=== PATIENT | male | born 1980 | race Caucasian/White ===

== ENCOUNTER 2016-08-29 16:17 | Emergency (ER) | payer OTHER ==
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
--- NOTE | 2016-08-29 17:33 | XR ---
EXAMINATION TYPE: XR ribs RT w pa chest xray DATE OF EXAM: 08/29/2016 5:18 PM COMPARISON: NONE HISTORY: Rib pain TECHNIQUE: 5 views FINDINGS: There is no pleural effusion or pneumothorax. Lungs are clear of infiltrate. Heart and medi astinum are normal. I see no rib fracture. IMPRESSION: Negative right rib exam.
[2016-08-29] MEDS ORDERED: IBUPROFEN 600 MG STARTER PACK 4 TAB BTL PO STA (17:35)
[2016-08-29 17:51] VITALS: BP 150/70; PULSE 97; RESP 16; TEMP 97.1
== END 2016-08-29 17:50 | disposition home or self-care (01) ==
LOC: EC 16:17
DX: M94.0 Chondrocostal junction syndrome [Tietze] (principal); G89.29 Other chronic pain; M54.9 Dorsalgia, unspecified; Z87.891 Personal history of nicotine dependence; W51.XXXA Accidental striking against or bumped into by another person, initial encounter
CPT/HCPCS: 99284

== ENCOUNTER → 2016-09-04 | Outpatient (CLI) | payer OTHER ==
[2016-09-04 14:54] LABS: Blood Urea Nitrogen 12 mg/dL (9-20); Non-African American GFR(MDRD) >60 (>60 ml/min/1.73 sqM)
--- NOTE | 2016-09-04 16:09 | CT ---
EXAMINATION TYPE: CT chest w con DATE OF EXAM: 09/04/2016 COMPARISON: Chest x-ray from 6 days ago. HISTORY: Abnormal x-ray. CT DLP: 1226.0 mGycm. Automated Exposure Control for Dose Reduction was Utilized. TECHNIQUE: CT scan of the thorax is performed following with IV Contrast, patient injected with 100 mL of Omnipaque 300. FINDINGS: LUNGS: The lungs are grossly clear, there is no concerning parenchymal mass or nodule identified. T here is no pleural effusion or pneumothorax seen. The tracheobronchial tree is patent. MEDIASTINUM: There are no greater than 1 cm hilar or mediastinal lymph nodes. No pericardial effusi on is seen. OTHER: Liver is diffusely low dense consistent with fatty infiltration. 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 Visualized portion of spleen is prominent cannot exclude splenomegaly. Some strai ghtening of spine is seen on sagittal images. Multilevel left lateral spurring is present. IMPRESSION: No worrisome mass or adenopathy is seen.
== END | disposition home or self-care (01) ==
LOC: RADCTMAIN 14:09
PROVIDERS: ATTEND Family Medicine
DX: R93.7 Abnormal findings on diagnostic imaging of other parts of musculoskeletal system (principal)
CPT/HCPCS: 82565; 84520; 71260; 36415; Q9967

== ENCOUNTER 2019-04-06 17:08 | Emergency (ER) | payer OTHER ==
[2019-04-06 17:20] VITALS: BP 157/100; PULSE 101; RESP 22; TEMP 98.2
[2019-04-06] MEDS ORDERED: ACET/COD 300 MG/30 MG STARTER PACK 6 TAB BTL PO STA (17:36)
--- NOTE | 2019-04-06 19:24 | XR ---
PROCEDURE: XR knee complete LT - 3V DATE AND TIME: 04/06/2019 5:49 PM CLINICAL INDICATION: PHH; left knee pain, fall anterior knee pain TECHNIQUE: Department protocol COMPARISON: None FINDINGS: There is no fracture or malalignment. Soft tissue swelling is noted. IMPRESSION: Soft tissue swelling.
--- NOTE | 2019-04-06 19:25 | XR ---
PROCEDURE: XR lumbar spine - 3V DATE AND TIME: 04/06/2019 5:49 PM CLINICAL INDICATION: Pain; fall TECHNIQUE: Department protocol COMPARISON: None FINDINGS: There is no fracture or malalignment. The soft tissues are negative for acute findings. Multilevel degenerative facet changes are noted, moderate degree. Multilevel mild degenerative disc c hanges. IMPRESSION: NO ACUTE PROCESS.
--- NOTE | 2019-04-06 19:33 | ED ---
Lower Extremity Injury HPI - General Chief Complaint: Extremity Injury, Lower Stated Complaint: [facility]- Left knee injury/fall Time Seen by Provider: 04/06/19 17:21 Source: patient Mode of arrival: ambulatory Limitations: no limitations - History of Present Illness Initial Comments: 38-year-old male presenting today for chief complaint of left knee pain. 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 She states she was able to walk and continue to work for another hour however he began to have anterior left knee pain. He states this caused him to limp and he started to the last his weight on his right leg she states she fell that this started to cause low back pain. Patient doesn't loss of bowel bladder control urinary retention IV drug use history of cancer fevers he denies any direct trauma to it chest had neck abdomen. Denies any injuries of the upper extremity, or the right LE. Patient denies ankle or hip pain. She denies numbness tingling loss of sensation, coolness or pallor patient has no other complaints and upon arrival appears well ambulatory no signs of acute distress - Related Data Previous Rx's Medication Instructions Recorded Ibuprofen [Motrin] 600 mg PO Q6HR PRN #20 tab 08/29/16 Allergies Allergy/AdvReac Type Severity Reaction Status Date / Time No Known Allergies Allergy Verified 04/06/19 17:20 Review of Systems ROS Statement: Those systems with pertinent positive or pertinent negative responses have been documented in the HPI. ROS Other: All systems not noted in ROS Statement are negative. Past Medical History Past Medical History: Diabetes Mellitus, Hyperlipidemia, Hypertension, Sleep Apnea/CPAP/BIPAP Additional Past Medical History / Comment(s): diverticulitis History of Any Multi-Drug Resistant Organisms: None Reported Past Surgical History: Tonsillectomy Additional Past Surgical History / Comment(s): hematoma removal from leg Past Psychological History: No Psychological Hx Reported Smoking Status: Former smoker Past Alcohol Use History: Rare Past Drug Use History: None Reported General Exam - General Exam Comments Initial Comments: General: The patient is awake and alert, in no distress, and does not appear acutely ill. Eye: Pupils are equal, round and reactive to light, extra-ocular movements are intact. No nystagmus. There is normal conjunctiva bilaterally. No signs of icterus. Cardiovascular: There is a regular rate and rhythm. No murmur, rub or gallop is appreciated. Respiratory: Lungs are clear to auscultation, respirations are non-labored, breath sounds are equal. No wheezes, stridor, rales, or rhonchi. Musculoskeletal: Inspection anterior soft tissue swelling of the right knee. extensor mechanism intact. Normal ROM of the LE b/l knees and ankles b/l. (-) log roll. Strength 5/5. Sensation intact. DP pulses equal bilaterally 2+. No laxity or posterior knee pain. Neurological: A&O x 3. CN II-XII intact grossly, There are no obvious motor or sensory deficits. Coordination appears grossly intact. Speech is normal. Skin: Skin is warm and dry and no rashes or lesions are noted. Psychiatric: Cooperative, appropriate mood & affect, normal judgment. Limitations: no limitations Course Vital Signs 04/06/19 17:18 Temperature 98.2 F Pulse Rate 101 H Respiratory 22 Rate Blood Pressure 157/100 O2 Sat by Pulse 98 Oximetry Medical Decision Making - Medical Decision Making 38-year-old male presenting for left knee pain no noted laxity. Anterior pain with swelling however extensor mechanism intact and patient is neurovascularly intact. X-ray revealed no fracture patient is able to weight-bear. Patient did have some mild paravertebral lumbar tenderness however no midline tenderness to palpation. At this time I Davonte bandage patient's left knee and discuss Rice instructions. Recommend patient follow up with primary care provider in the pain is persistent to follow-up with orthopedic surgery for further evaluation patient is agreeable to this care plan and discharge at this time. Disposition Clinical Impression: Fall, Left knee pain, Low back pain, Elevated blood pressure reading Disposition: HOME SELF-CARE Condition: Good Instructions (If sedation given, give patient instructions): R.I.C.E. Treatment (ED) Additional Instructions: Please use medication as discussed. Please follow-up with family doctor in the next 2 days, if symptoms are persistent seek orthopedic evaluation as discussed. Please return to emergency room if the symptoms increase or worsen or for any other concerns. Is patient prescribed a controlled substance at d/c from ED?: No Referrals: Kerry Galicia III, MD [Primary Care Provider] - 1-2 days Time of Disposition: 19:33
== END 2019-04-06 20:13 | disposition home or self-care (01) ==
LOC: EC 17:08
DX: M25.562 Pain in left knee (principal); M54.5 Low back pain; I10 Essential (primary) hypertension; M79.89 Other specified soft tissue disorders; G47.30 Sleep apnea, unspecified; Z87.891 Personal history of nicotine dependence; Z99.89 Dependence on other enabling machines and devices; W01.0XXA Fall on same level from slipping, tripping and stumbling without subsequent striking against object, initial encounter; Y92.69 Other specified industrial and construction area as the place of occurrence of the external cause; Y99.0 Civilian activity done for income or pay
CPT/HCPCS: 72100; 99283

== ENCOUNTER → 2019-04-13 | Outpatient (CLI) | payer OTHER ==
--- NOTE | 2019-04-13 14:39 | XR ---
EXAMINATION TYPE: XR knee complete LT DATE OF EXAM: 04/13/2019 COMPARISON: NONE HISTORY: 38-year-old male left knee contusion, pain TECHNIQUE: 3 views FINDINGS: No acute fracture, subluxation, dislocation is seen. Anterior soft tissue swelling without significan t knee joint effusion. Extensor mechanism appears intact. IMPRESSION: Anterior soft tissue swelling without acute osseous abnormality seen.
== END | disposition home or self-care (01) ==
LOC: RADXRMAIN 14:03
PROVIDERS: ATTEND Emergency Medicine
DX: S80.02XD Contusion of left knee, subsequent encounter (principal)

== ENCOUNTER → 2019-04-19 | Outpatient (CLI) | payer OTHER ==
--- NOTE | 2019-04-19 22:06 | MR ---
EXAMINATION TYPE: MR knee LT wo con DATE OF EXAM: 04/19/2019 COMPARISON: Plain film 04/13/2019 HISTORY: Lt knee pain, injury, fell 2 weeks ago TECHNIQUE: Multiplanar, multisequence imaging of the left knee is performed without IV contrast. FINDINGS: MEDIAL MENISCUS: There is some linear increased signal present within the medial meniscus body and po sterior horn without clear communication to the articular surface, root anchor thought to be intact. On sagittal image #23 there is some linear increased signal present extending to the articular surfac e LATERAL MENISCUS: Anterior and posterior horns are intact without tear. CRUCIATE LIGAMENTS: The anterior and posterior cruciate ligaments are intact and unremarkable. COLLATERAL LIGAMENTS: The medial collateral ligament and lateral collateral ligament complex are inta ct and there is some increased signal coursing along the medial collateral ligament possibly indicati ng strain. EXTENSOR MECHANISM: Visualized quadriceps and patellar tendons are intact. EFFUSION: Minimal joint effusion POPLITEAL CYST: No popliteal/de la rosa cyst. TRICOMPARTMENT SPACES: Maintained CARTILAGE: Intact BONE MARROW SIGNAL: There is some subchondral bone marrow edema present along the medial femoral cond yle OTHER: Subcutaneous edema changes are present. IMPRESSION: Bone contusion medial femoral condyle, difficult to exclude a small tear the posterior horn the media l meniscus as described. Soft tissue edema. Small joint effusion.
== END | disposition home or self-care (01) ==
LOC: RADMRIMAIN 20:55
PROVIDERS: ATTEND Emergency Medicine
DX: S80.02XD Contusion of left knee, subsequent encounter (principal)

== ENCOUNTER 2021-01-06 12:01 | Emergency (ER) | payer OTHER ==
[2021-01-06 13:41] LABS: Glucose,Whole Blood 243 mg/dL (75-99)
--- NOTE | 2021-01-06 13:43 | ED ---
General Adult HPI - General Source: patient, RN notes reviewed Mode of arrival: ambulatory Limitations: no limitations <Ian Leggett - Last Filed: 01/06/21 13:42> <Marco Woodson - Last Filed: 01/06/21 15:21> - General Stated complaint: SOB & cough Time Seen by Provider: 01/06/21 13:20 - History of Present Illness Initial comments: This a 40-year-old male presents emergency Department chief complaint of cough congestion times one week. Patient states she's been having increasing shortness of breath, hyperglycemia. Patient is known diabetic. Patient states his blood sugars have been between 2 and 300. Patient's had been properly vaccinated for COVID-19. Patient has no history of asthma or COPD. Patient denies any vomiting diarrhea (Ian Leggett) - Related Data Previous Rx's Medication Instructions Recorded Ibuprofen [Motrin] 600 mg PO Q6HR PRN #20 tab 08/29/16 Allergies Allergy/AdvReac Type Severity Reaction Status Date / Time No Known Allergies Allergy Verified 01/06/21 13:43 Review of Systems ROS Other: All systems not noted in ROS Statement are negative. <Ian Leggett - Last Filed: 01/06/21 13:42> ROS Other: All systems not noted in ROS Statement are negative. <Marco Woodson - Last Filed: 01/06/21 15:21> ROS Statement: Those systems with pertinent positive or pertinent negative responses have been documented in the HPI. Past Medical History Past Medical History: Diabetes Mellitus, Hyperlipidemia, Hypertension, Sleep Apnea/CPAP/BIPAP Additional Past Medical History / Comment(s): diverticulitis History of Any Multi-Drug Resistant Organisms: None Reported Past Surgical History: Tonsillectomy Additional Past Surgical History / Comment(s): hematoma removal from leg Past Psychological History: No Psychological Hx Reported Past Alcohol Use History: Rare Past Drug Use History: None Reported <Ian Leggett - Last Filed: 01/06/21 13:42> General Exam General appearance: alert, in no apparent distress, obese (Morbidly) Head exam: Present: atraumatic, normocephalic, normal inspection Eye exam: Present: normal appearance, PERRL, EOMI. Absent: scleral icterus, conjunctival injection, periorbital swelling ENT exam: Present: normal exam, mucous membranes moist Neck exam: Present: normal inspection Respiratory exam: Present: normal lung sounds bilaterally. Absent: respiratory distress, wheezes, rales, rhonchi, stridor Cardiovascular Exam: Present: regular rate, normal rhythm, normal heart sounds. Absent: systolic murmur, diastolic murmur, rubs, gallop, clicks GI/Abdominal exam: Present: soft, normal bowel sounds. Absent: distended, tenderness, guarding, rebound, rigid Extremities exam: Present: normal inspection, full ROM, normal capillary refill. Absent: tenderness, pedal edema, joint swelling, calf tenderness Neurological exam: Present: alert, oriented X3 Psychiatric exam: Present: normal affect, normal mood Skin exam: Present: warm, dry, intact, normal color. Absent: rash <Marco Woodson - Last Filed: 01/06/21 15:21> Course Vital Signs 01/06/21 13:33 Temperature 99.4 F Pulse Rate 119 H Respiratory 24 Rate Blood Pressure 155/84 O2 Sat by Pulse 92 L Oximetry Medical Decision Making - Lab Data Result diagrams: 01/06/21 14:33 01/06/21 14:30 - Radiology Data Radiology results: report reviewed, image reviewed <Marco Woodson - Last Filed: 01/06/21 15:21> - Medical Decision Making 40-year-old male presented emergency department complaining of shortness of breath and not feeling well for the past several days. Labs, chest x-ray, Covid test ordered. Labs: CBC unremarkable CMP unremarkable. Covid test positive. Patient does meet qualifications for monoclonal antibody infusion and wishes to under go to treatment. Case discussed with Dr. Lion, patient can discharge home after infusion with follow-up primary care. (Marco Woodson) - Lab Data Lab Results 01/06/21 01/06/21 01/06/21 Range/Units 13:39 13:43 14:30 WBC (3.8-10.6) k/uL RBC (4.30-5.90) m/uL Hgb (13.0-17.5) gm/dL Hct (39.0-53.0) % MCV (80.0-100.0) fL MCH (25.0-35.0) pg MCHC (31.0-37.0) g/dL RDW (11.5-15.5) % Plt Count (150-450) k/uL MPV Neutrophils % % Lymphocytes % % Monocytes % % Eosinophils % % Basophils % % Neutrophils # (1.3-7.7) k/uL Lymphocytes # (1.0-4.8) k/uL Monocytes # (0-1.0) k/uL Eosinophils # (0-0.7) k/uL Basophils # (0-0.2) k/uL Sodium 134 L (137-145) mmol/L Potassium 4.2 (3.5-5.1) mmol/L Chloride 99 (98-107) mmol/L Carbon Dioxide 25 (22-30) mmol/L Anion Gap 10 mmol/L BUN 16 (9-20) mg/dL Creatinine 1.18 (0.66-1.25) mg/dL Est GFR (CKD-EPI)AfAm 89 (>60 ml/min/1.73 sqM) Est GFR (CKD-EPI)NonAf 77 (>60 ml/min/1.73 sqM) Glucose 265 H (74-99) mg/dL POC Glucose (mg/dL) 243 H (75-99) mg/dL POC Glu Lathe Scalper Operator ID Fetterly, Maile Plasma Lactic Acid Gene (0.7-2.0) mmol/L Calcium 8.8 (8.4-10.2) mg/dL Total Bilirubin 0.8 (0.2-1.3) mg/dL AST 37 (17-59) U/L ALT 26 (4-49) U/L Alkaline Phosphatase 59 (38-126) U/L Total Protein 7.2 (6.3-8.2) g/dL Albumin 3.7 (3.5-5.0) g/dL Coronavirus (PCR) Detected A (Not Detectd) 01/06/21 01/06/21 Range/Units 14:33 14:33 WBC 8.3 (3.8-10.6) k/uL RBC 4.81 (4.30-5.90) m/uL Hgb 14.5 (13.0-17.5) gm/dL Hct 40.6 (39.0-53.0) % MCV 84.4 (80.0-100.0) fL MCH 30.1 (25.0-35.0) pg MCHC 35.7 (31.0-37.0) g/dL RDW 13.1 (11.5-15.5) % Plt Count 206 (150-450) k/uL MPV 7.7 Neutrophils % 83 % Lymphocytes % 11 % Monocytes % 4 % Eosinophils % 0 % Basophils % 0 % Neutrophils # 6.9 (1.3-7.7) k/uL Lymphocytes # 0.9 L (1.0-4.8) k/uL Monocytes # 0.4 (0-1.0) k/uL Eosinophils # 0.0 (0-0.7) k/uL Basophils # 0.0 (0-0.2) k/uL Sodium (137-145) mmol/L Potassium (3.5-5.1) mmol/L Chloride (98-107) mmol/L Carbon Dioxide (22-30) mmol/L Anion Gap mmol/L BUN (9-20) mg/dL Creatinine (0.66-1.25) mg/dL Est GFR (CKD-EPI)AfAm (>60 ml/min/1.73 sqM) Est GFR (CKD-EPI)NonAf (>60 ml/min/1.73 sqM) Glucose (74-99) mg/dL POC Glucose (mg/dL) (75-99) mg/dL POC Glu Lathe Scalper Operator ID Plasma Lactic Acid Gene 1.4 (0.7-2.0) mmol/L Calcium (8.4-10.2) mg/dL Total Bilirubin (0.2-1.3) mg/dL AST (17-59) U/L ALT (4-49) U/L Alkaline Phosphatase (38-126) U/L Total Protein (6.3-8.2) g/dL Albumin (3.5-5.0) g/dL Coronavirus (PCR) (Not Detectd) - Radiology Data Chest x-ray: Bilateral airspace disease is present. Lungs bilateral low there is no evidence of pneumothorax or pleural effusion cardiac is also is likely sta ble conifer differences in technique. (Marco Woodson) Disposition <Ian Leggett - Last Filed: 01/06/21 13:42> Is patient prescribed a controlled substance at d/c from ED?: No Time of Disposition: 15:21 <Marco Woodson - Last Filed: 01/06/21 15:21> Clinical Impression: Pneumonia due to COVID-19 virus Disposition: HOME SELF-CARE Condition: Stable Instructions (If sedation given, give patient instructions): Coronavirus Disease 2019 (COVID-19) Additional Instructions: Please return to the Emergency Department if symptoms worsen or any other co ncerns. Follow-up with primary care 1-2 days. Get plenty rest increase oral fluids. Take, Motrin for any fevers aches and pains. Referrals: Kerry Galicia III, MD [Primary Care Provider] - 1-2 days
[2021-01-06 14:50] LABS: ALT 26 U/L (4-49); AST 37 U/L (17-59); African American GFR (CKD) 89 (>60 ml/min/1.73 sqM); Albumin 3.7 g/dL (3.5-5.0); Alkaline Phosphatase 59 U/L (38-126); Anion Gap 10 mmol/L; Blood Urea Nitrogen 16 mg/dL (9-20); Calcium 8.8 mg/dL (8.4-10.2); Carbon Dioxide 25 mmol/L (22-30); Chloride 99 mmol/L (98-107); Glucose 265 mg/dL (74-99); Non-African American GFR(CKD) 77 (>60 ml/min/1.73 sqM); Potassium 4.2 mmol/L (3.5-5.1); Sodium 134 mmol/L (137-145); Total Bilirubin 0.8 mg/dL (0.2-1.3); Total Protein 7.2 g/dL (6.3-8.2)
[2021-01-06 15:00] LABS: Basophils % (A) 0 %; Eosinophils % (A) 0 %; HCT 40.6 % (39.0-53.0); HGB 14.5 gm/dL (13.0-17.5); Lymphocytes # (A) 0.9 k/uL (1.0-4.8); Lymphocytes % (A) 11 %; MCH 30.1 pg (25.0-35.0); MCHC 35.7 g/dL (31.0-37.0); MCV 84.4 fL (80.0-100.0); Mean Platelet Volume 7.7; Monocytes # (A) 0.4 k/uL (0-1.0); Monocytes % (A) 4 %; Neutrophils # (A) 6.9 k/uL (1.3-7.7); Neutrophils % (A) 83 %; Platelet Count 206 k/uL (150-450); RBC 4.81 m/uL (4.30-5.90); RDW 13.1 % (11.5-15.5); WBC 8.3 k/uL (3.8-10.6)
--- NOTE | 2021-01-06 15:19 | XR ---
EXAMINATION TYPE: XR chest 2V DATE OF EXAM: 01/06/2021 COMPARISON: Chest x-ray 08/29/2016 HISTORY: Cough, shortness of breath TECHNIQUE: Frontal and lateral views of the chest are obtained. FINDINGS: Bilateral airspace disease is present. Lung volumes are low. There is no evident pneumotho rax or pleural effusion. Cardiac mediastinal silhouette is likely stable accounting for differences i n technique. IMPRESSION: Correlate for pneumonia.
[2021-01-06] MEDS ORDERED: DEXAMETHASONE SOD PHOSPHATE 10 MG/ML 1 ML VIAL IV STA (15:20)
[2021-01-06] MEDS ORDERED: CASIRIVIMAB (REGN10933) (EUA) 600 MG, IMDEVIMAB (REGN10987) (EUA) 600 MG in SODIUM CHLO... IVPB ONE (16:00)
[2021-01-06] MEDS ORDERED: SODIUM CHLORIDE 0.9% 50 ML IVPB ONE (16:00)
[2021-01-06 16:57] VITALS: BP 127/63; PULSE 98; RESP 16; TEMP 100
[2021-01-06] MEDS ORDERED: IBUPROFEN 400 MG TAB PO STA (17:00)
== END 2021-01-06 17:30 | disposition home or self-care (01) ==
LOC: EC 12:01
DX: U07.1 COVID-19 (principal); J12.82 Pneumonia due to coronavirus disease 2019; E11.65 Type 2 diabetes mellitus with hyperglycemia; E78.5 Hyperlipidemia, unspecified; I10 Essential (primary) hypertension
CPT/HCPCS: 99285; 36415; 80053; 82009; 83605; 85025; 87635; 71046; J1100; Q0243; 96375

== ENCOUNTER → 2021-12-08 | Outpatient (CLI) | payer OTHER ==
[2021-12-08 18:19] LABS: ALT 13 U/L (10-49); AST 20 U/L (14-35); African American GFR (CKD) 92.1 (60.0-200.0); Albumin 4.3 g/dL (3.8-4.9); Albumin/Globulin Ratio 1.23 (1.60-3.17); Alkaline Phosphatase 72 U/L (41-126); BUN/Creat Ratio 19.39 Ratio (12.00-20.00); Blood Urea Nitrogen 22.1 mg/dL (9.0-27.0); Calcium 9.9 mg/dL (8.7-10.3); Carbon Dioxide 27.6 mmol/L (20.0-27.5); Chloride 104 mmol/L (96-109); Chol/HDL Ratio 4.74 Ratio; Globulin 3.5 g/dL (1.6-3.3); Glucose 134 mg/dL (70-110); LDL Cholesterol,Calculated 58.2 mg/dL (0.0-131.0); Non-African American GFR(CKD) 79.4 (60.0-200.0); Potassium 5.1 mmol/L (3.5-5.5); Sodium 142 mmol/L (135-145); Total Protein 7.8 g/dL (6.2-8.2)
[2021-12-09] LABS: Microalbumin Creatinine Ratio <30 mg/g Creat (0-30); Urine Creatinine 73.9 mg/dL (39.0-259.0)
== END | disposition home or self-care (01) ==
LOC: LABWHC1 13:28
PROVIDERS: ATTEND Internal Medicine
DX: E11.65 Type 2 diabetes mellitus with hyperglycemia (principal)
CPT/HCPCS: 36415; 80053; 80061; 82043; 82570; 83036

== ENCOUNTER → 2022-07-22 | Outpatient (CLI) | payer OTHER, BC ==
[2022-07-22 16:24] LABS: ALT 17 U/L (10-49); AST 18 U/L (14-35); African American GFR (CKD) 96.1 (60.0-200.0); Albumin 4.3 g/dL (3.8-4.9); Alkaline Phosphatase 89 U/L (41-126); BUN/Creat Ratio 16.91 Ratio (12.00-20.00); Blood Urea Nitrogen 18.6 mg/dL (9.0-27.0); Calcium 9.8 mg/dL (8.7-10.3); Carbon Dioxide 28.4 mmol/L (20.0-27.5); Chloride 101 mmol/L (96-109); Chol/HDL Ratio 5.57 Ratio; Globulin 3.3 g/dL (1.6-3.3); Glucose 152 mg/dL (70-110); LDL Cholesterol,Calculated 122.2 mg/dL (0.0-131.0); Non-African American GFR(CKD) 82.9 (60.0-200.0); Potassium 4.6 mmol/L (3.5-5.5); Sodium 140 mmol/L (135-145); Total Protein 7.6 g/dL (6.2-8.2)
== END | disposition home or self-care (01) ==
LOC: LABWHC1 09:11
PROVIDERS: ATTEND Family Medicine
DX: E11.65 Type 2 diabetes mellitus with hyperglycemia (principal)
CPT/HCPCS: 36415; 80053; 80061; 82043; 82570; 83036

== ENCOUNTER → 2022-11-27 | Outpatient (CLI) | payer BC ==
--- NOTE | 2022-11-27 08:52 | XR ---
EXAMINATION TYPE: XR Hip Complete RT DATE OF EXAM: 11/27/2022 8:08 AM INDICATION: Patient age:Male; 42 years old; Reason for study: BACK PAIN; PHH. COMPARISON: None. TECHNIQUE: The right hip was examined in the frontal and lateral projections . FINDINGS: No evidence of any acute osseous pathology, joint dislocation, or soft tissue swelling. No significant joint space narrowing or spurring. Vascular sclerosis. IMPRESSION: No acute osseous pathology.
--- NOTE | 2022-11-27 08:52 | XR ---
EXAMINATION TYPE: XR lumbar spine 2 or 3V DATE OF EXAM: 11/27/2022 CLINICAL HISTORY: pain TECHNIQUE: Three views of the lumbar spine are submitted. COMPARISON: Lumbar spine radiograph 04/06/2019 FINDINGS: There are 5 lumbar type vertebral bodies identified. The lumbar spine shows satisfactory alignment w ithout evidence of acute fracture or dislocation. Vertebral body heights are within normal limits. Multilevel disc space narrowing with endplate sclerosis and anterior osteophytosis. Multilevel facet arthropathy which is most pronounced at L4-L5 and L5-S1. The overlying soft tissue appears unremarka ble. IMPRESSION: 1. No acute fracture or dislocation is seen in the lumbar spine. 2. [id number] multilevel degenerative disc disease and facet arthropathy. This is most pronoun ana laura at L4-L5 and L5-S1.
[2022-11-27 14:13] LABS: Basophils # (A) 0.03 X 10*3/uL (0.00-0.10); Basophils % (A) 0.3 %; Eosinophils # (A) 0.15 X 10*3/uL (0.04-0.35); Eosinophils % (A) 1.7 %; HCT 46.6 % (39.6-50.0); HGB 15.9 d/dL (13.0-17.0); Lymphocytes # (A) 2.66 X 10*3/uL (0.90-5.00); Lymphocytes % (A) 30.4 %; MCH 29.6 pg (27.0-32.0); MCHC 34.1 d/dL (32.0-37.0); MCV 86.8 FL (80.0-97.0); Mean Platelet Volume 9.6 FL (9.5-12.2); Monocytes # (A) 0.77 X 10*3/uL (0.20-1.00); Monocytes % (A) 8.8 %; NRBC Per 100 WBC 0 X 10*3/uL (0.00-0.01); Neutrophils % (A) 58.3 %; Platelet Count 303 X 10*3/uL (140-440); RBC 5.37 X 10*6/uL (4.40-5.60); WBC 8.75 X 10*3/uL (4.50-10.00)
[2022-11-27 14:24] LABS: ALT 19 U/L (10-49); AST 19 U/L (14-35); Albumin 4.6 d/dL (3.8-4.9); Albumin/Globulin Ratio 1.59 Ratio (1.60-3.17); Alkaline Phosphatase 75 U/L (41-126); Calcium 9.8 mg/dL (8.7-10.3); Carbon Dioxide 27.3 mmol/L (21.6-31.8); Chloride 103 mmol/L (96-109); Chol/HDL Ratio 3.51 Ratio; Globulin 2.9 d/dL (1.6-3.3); Glucose 109 mg/dL (70-110); LDL Cholesterol,Calculated 79.6 mg/dL (0.0-131.0); Potassium 5.4 mmol/L (3.5-5.5); Sodium 140 mmol/L (135-145); T4, Free (Free Thyroxine) 1.28 ng/dL (0.80-1.80); Total Bilirubin 0.5 mg/dL (0.3-1.2); Total Protein 7.5 d/dL (6.2-8.2)
== END | disposition home or self-care (01) ==
LOC: LABWHC1 07:42
PROVIDERS: ATTEND Student in an Organized Health Care Education/Training Program
DX: E11.65 Type 2 diabetes mellitus with hyperglycemia (principal); Z79.899 Other long term (current) drug therapy; M54.89 Other dorsalgia; M47.816 Spondylosis without myelopathy or radiculopathy, lumbar region; M51.36 Other intervertebral disc degeneration, lumbar region
CPT/HCPCS: 36415; 72100; 73502; 80053; 80061; 82306; 84439; 84443; 85025